=== PATIENT | male | born 1955 | race Caucasian/White ===

== ENCOUNTER 2020-08-13 05:54 | Day surgery (SDC) | payer OTHER ==
--- NOTE | 2020-08-07 15:28 | RAD REPORT ---
EXAM DESCRIPTION: RAD - Chest Pa And Lat (2 Views) - 08/07/2020 3:23 pm CLINICAL HISTORY: preop Chest pain. COMPARISON: Chest Single View dated 08/02/2017; CHEST PA AND LAT 2 VIEW dated 03/25/2015 TECHNIQUE: PA and lateral views of the chest were obtained. FINDINGS: The lungs are hyperexpanded compatible with COPD. The heart is upper limit of normal in si ze. No fracture or aggressive bony process. IMPRESSION: COPD without acute process identified.
[2020-08-07 15:54] LABS: Absolute Lymphocytes (CBC) 2.7 K/uL (0.7-4.9); Basophils % 0.6 % (0-1.3); Hematocrit 44.2 % (39.6-49.0); Lymphocytes % 32.2 % (15.3-44.8); MPV 7.2 fL (7.6-11.3); RBC Red Blood Cell Count 4.56 M/uL (4.33-5.43)
[2020-08-07 15:56] LABS: Protime INR 1.02
[2020-08-07 16:07] LABS: Potassium 4.7 mmol/L (3.5-5.1)
[2020-08-13] MEDS ORDERED: Ringers Lactate 1,000 ML IV ONE (06:25)
[2020-08-13] MEDS ORDERED: BUPIVACAINE 0.25% PF 30 ML VIAL ONE (07:21)
[2020-08-13] MEDS ORDERED: FENTANYL CITR 100 MCG/2 ML ONE (07:29)
[2020-08-13] MEDS ORDERED: propofoL 200 MG/20 ML VIAL IV ONE (07:29)
[2020-08-13] MEDS ORDERED: KETOROLAC 30 MG/ML INJ ONE (07:30)
[2020-08-13] MEDS ORDERED: LIDOCAINE 2% MPF 5 ML VIAL ONE (07:30)
[2020-08-13] MEDS ORDERED: MIDAZOLAM HCL 2 MG/2 ML INJ ONE (07:30)
[2020-08-13] MEDS ORDERED: dexAMETHasone 10 MG/ML VIAL ONE (07:30)
[2020-08-13] MEDS ORDERED: CEFAZOLIN/SWI 1gm 1 GM/10 ML SYR ONE (07:36)
--- NOTE | 2020-08-13 08:27 | P.BOP ---
Preoperative diagnosis: left carpal tunnel syndrome Postoperative diagnosis: same Primary procedure: left carpal tunnel release Director Financial Systems: NONE,NONE Estimated blood loss: 3 cc Specimen: none Findings: see dictation Anesthesia: General Complications: None Implants: none Fluids & blood products: per anesthesia record; TT: 23 mins @ 250 mmHg Transferred to: Recovery Room Condition: Good
[2020-08-13] MEDS ORDERED: ONDANSETRON 4 MG/2 ML VIAL ONE (08:49)
[2020-08-13] MEDS ORDERED: TRAMADOL HCL 50 MG TAB PO ONE (09:10)
[2020-08-13] MEDS ORDERED: TRAMADOL HCL 50 MG TAB ONE (09:22)
[2020-08-13 09:37] VITALS: BP 135/74; TEMP 96.5; O2SAT 97
--- NOTE | 2020-08-14 09:17 | OP ---
Date of Procedure: 08/13/2020 Surgeon: Vikas Lind MD Preoperative Diagnosis: Left carpal tunnel syndrome. Postoperative Diagnosis: Left carpal tunnel syndrome. Procedure Performed: Left carpal tunnel release. Anesthesia: General, LMA. Fluids: Per Anesthesia record. Estimated Blood Loss: 3 cc. Complications: None. Indication For Procedure: Eliud is a 64-year-old male presented to my clinic with signs, symptoms, and EMG findings consistent with carpal tunnel syndrome. Patient failed conservative treatment andrew ures including night splints. I discussed with the patient at length risks and benefits associated w ith operative and nonoperative treatments. He expressed understanding and elected to proceed with op erative treatment. Description Of Procedure: After informed consent was obtained, the patient was identified in the pre operative holding area. The left upper extremity was marked. Patient was then brought back to the o perating room, transferred to the operating table in supine fashion, placed under general LMA anesthe cristine. The left upper extremity was then prepped and draped in usual sterile fashion. A time-out was initiated. The correct patient and procedure were confirmed and identified. Patient did receive his preoperative prophylactic antibiotics. The left upper extremity was exsanguinated and the tournique t was inflated 250 mmHg. Approximately 2 cm longitudinal incision was made just ulnar to the thenar crease. Dissection was then taken down to the palmar fascia. A [place] elevator was then placed deep to the palmar fascia to protect the median nerve at all times. The palmar fascia was released using a 15 blade followed by transverse carpal ligament was encountered. Again, [place] elevator was placed just deep to the transverse carpal ligament and the transverse carpal ligament was completely release d under direct visualization. Any remaining fascial bands were then released using a blunt-tipped Me yaakovenbaum with the tips pointed superficially. The wound was then irrigated thoroughly with normal sa line. The skin was then approximated using a 5-0 Prolene. Sterile dressings were applied. Tourniqu et was let down. Patient was awakened and transferred to PACU in stable condition. Postoperative Plan: The patient will begin working on range of motion exercises. He will follow up in 1 week for wound check and suture removal. CV/MODL Voice ID: [id number] Report ID: [id number]
== END 2020-08-13 09:35 | disposition home health service (06) ==
LOC: OR 05:54
PROVIDERS: ATTEND Orthopaedic Surgery Sports Medicine
PROC: 01N50ZZ Release Median Nerve, Open Approach (ICD-10-PCS; principal; 2020-08-13 11:30)
DX: G56.03 Carpal tunnel syndrome, bilateral upper limbs (principal); Z20.828 Contact with and (suspected) exposure to other viral communicable diseases; G47.33 Obstructive sleep apnea (adult) (pediatric); I10 Essential (primary) hypertension; J44.9 Chronic obstructive pulmonary disease, unspecified
CPT/HCPCS: 93005; 85025; 80048; 36415; 85610; 71046; 64721; U0002; J2704; J2250; J3010; J1100; J0690; J7120; J2405

== ENCOUNTER 2020-11-21 08:22 | Day surgery (SDC) | payer OTHER ==
[2020-11-14 15:51] LABS: Potassium 4.5 mmol/L (3.5-5.1)
[2020-11-14 15:52] LABS: Absolute Lymphocytes (CBC) 2.2 K/uL (0.7-4.9); Basophils % 0.8 % (0-1.3); Hematocrit 41.3 % (39.6-49.0); MPV 7.3 fL (7.6-11.3); RBC Red Blood Cell Count 4.23 M/uL (4.33-5.43)
[2020-11-21] MEDS ORDERED: FENTANYL CITR 100 MCG/2 ML ONE (08:56)
[2020-11-21] MEDS ORDERED: MIDAZOLAM HCL 2 MG/2 ML INJ ONE (08:56)
[2020-11-21] MEDS ORDERED: propofoL 200 MG/20 ML VIAL IV ONE (08:57)
[2020-11-21] MEDS ORDERED: KETOROLAC 30 MG/ML INJ ONE (08:57)
[2020-11-21] MEDS ORDERED: LIDOCAINE 2% MPF 5 ML VIAL ONE (08:57)
[2020-11-21] MEDS ORDERED: BUPIVACAINE 0.25% PF 10 ML VIAL ONE (09:02)
[2020-11-21] MEDS ORDERED: CEFAZOLIN/SWI 1gm 1 GM/10 ML SYR ONE (09:04)
[2020-11-21] MEDS ORDERED: Ringers Lactate 1,000 ML IV ONE (09:04)
[2020-11-21] MEDS ORDERED: BUPIVACAINE 0.25% PF 30 ML VIAL ONE (09:45)
--- NOTE | 2020-11-21 10:59 | P.BOP ---
Preoperative diagnosis: right carpal tunnel syndrome Postoperative diagnosis: same Primary procedure: right open carpal tunnel release Secondary procedure: none Grouter Helper: NONE,NONE Estimated blood loss: 3 cc Specimen: none Findings: see Anesthesia: General Complications: None Implants: none Fluids & blood products: per anesthesia record; TT: 22 mins @ 250 mmHg Transferred to: Recovery Room Condition: Good
[2020-11-21 12:25] VITALS: BP 131/77; TEMP 97
[2020-11-21 12:26] VITALS: O2SAT 98
--- NOTE | 2020-11-22 23:45 | OP ---
Date of Procedure: 11/21/2020 Surgeon: Vikas Lind MD Preoperative Diagnosis: Right carpal tunnel syndrome. Postoperative Diagnosis: Right carpal tunnel syndrome. Procedure Performed: Right open carpal tunnel release. Anesthesia: General LMA. Fluids: Per Anesthesia record. Estimated Blood Loss: 3 cc. Complications: None. Specimens: None. Indication For Procedure: Eliud is a 65-year-old male, who presented to my clinic with signs, symp toms, and EMG findings consistent with right carpal tunnel syndrome. The patient failed conservative treatment measures and have significant pain and symptoms that limited his activities of daily livin g. I discussed with the patient at length risks and benefits associated with operative and nonoperat angelica treatment. He expressed understanding and elected proceed with operative treatment. Description Of Procedure: After informed consent was obtained, the patient was identified in the pre operative holding area. The right upper extremity was marked. The patient was then brought back to the operating room, transferred to the operating table in supine fashion, placed under general LMA an esthesia. The right upper extremity was then prepped and draped in usual sterile fashion. A time-ou t was initiated. Correct patient and procedure were performed, identified. The patient did receive his preoperative prophylactic antibiotics. Approximately a 3 cm longitudinal incision was made just ulnar to the thenar crease. Dissection was then taken down to the palmar fascia, which was identifie d. A [place] elevator was placed deep to the palmar fascia and deep to the transverse carpal ligament to protect the median nerve at all times. A 15 blade was then used to release the palmar fascia and transverse carpal ligament to protect the median nerve at all times with a [place] elevator. Any remai codie fascial bands were then released using a blunt-tipped Metzenbaum with aimed superficially to pro tect the median nerve at all times. Once complete release of the transverse carpal ligament was perf ormed, the wound was then irrigated thoroughly with normal saline. The skin was approximated using a 5-0 Prolene. A 0.25% Marcaine was then placed around the incision for postoperative anesthetic and the patient awakened and transferred to PACU in stable condition. Postoperative Plan: The patient will be nonweightbearing and will follow up in my clinic in 1 week f or suture removal. CV/MODL Voice ID: [id number] Report ID: [id number]
== END 2020-11-21 12:11 | disposition home health service (06) ==
LOC: OR 08:22
PROVIDERS: ATTEND Orthopaedic Surgery Sports Medicine
PROC: 01N50ZZ Release Median Nerve, Open Approach (ICD-10-PCS; principal; 2020-11-21 10:00)
DX: G56.01 Carpal tunnel syndrome, right upper limb (principal); E66.01 Morbid (severe) obesity due to excess calories; Z88.6 Allergy status to analgesic agent; Z20.822 Contact with and (suspected) exposure to COVID-19; I10 Essential (primary) hypertension; E78.00 Pure hypercholesterolemia, unspecified
CPT/HCPCS: 85025; 80048; 36415; 85610; 85730; 64721; U0002; J2704; J2250; J3010; J0690; J7120

== ENCOUNTER 2022-07-05 11:00 | Day surgery (SDC) | payer OTHER ==
[2022-07-01 10:57] LABS: Absolute Lymphocytes (CBC) 1.8 K/uL (0.7-4.9); Hematocrit 43.7 % (39.6-49.0); Lymphocytes % 34.2 % (15.3-44.8); MCV 96.5 fL (80-100); MPV 6.7 fL (7.6-11.3); RBC Red Blood Cell Count 4.53 M/uL (4.33-5.43)
[2022-07-01 11:06] LABS: Protime INR 0.94
[2022-07-05] MEDS ORDERED: HEPA 1000U/500MLS 2,000 UNIT/1,000 ML BAG IV ONE (11:21)
[2022-07-05] MEDS ORDERED: LIDOCAINE 1% 20 ML MDV ONE (11:21)
[2022-07-05] MEDS ORDERED: NA CHLORIDE 0.9% 500 ML ONE (11:26)
[2022-07-05] MEDS ORDERED: HEPARIN 5000 UNIT/ML 1 ML VIAL ONE (11:45)
[2022-07-05] MEDS ORDERED: FENTANYL CITR 100 MCG/2 ML ONE (11:45)
[2022-07-05] MEDS ORDERED: MIDAZOLAM HCL 2 MG/2 ML INJ ONE (11:45)
[2022-07-05] MEDS ORDERED: CLOPIDOGREL 75 MG TABLET ONE (11:46)
[2022-07-05] MEDS ORDERED: HEPARIN 10,000 UNIT/10 ML VIAL IV ONE (11:46)
[2022-07-05] MEDS ORDERED: TICAGRELOR 90 MG TABLET PO ONE (11:46)
[2022-07-05] MEDS ORDERED: VERAPAMIL HCL 10 MG/4 ML VIAL IV ONE (11:46)
[2022-07-05] MEDS ORDERED: ATROPINE SULF 1 MG/10 ML SYR IV ONE (11:46)
[2022-07-05] MEDS ORDERED: ASPIRIN 325 MG TAB ONE (11:46)
--- NOTE | 2022-07-05 12:18 | EKG ---
Test Date: 2022-07-01 Test Time: 09:18:07 Manufacturing Technologist: HEATHER MEASUREMENT RESULTS: Intervals: Rate: 78 MI: 180 QRSD: 94 QT: 390 QTc: 444 [place]: P: 55 MI: 180 QRS: 9 T: 47 INTERPRETIVE STATEMENTS: Sinus rhythm with occasional premature ventricular complexes Otherwise normal ECG Compared to ECG 04/28/2022 11:04:05 Myocardial infarct finding no longer present Electronically Signed On 07-05-22 12:14:14 POLITICAL GEOGRAPHER by Lenin Garcia
[2022-07-05 14:06] VITALS: BP 135/74; O2SAT 98
--- NOTE | 2022-07-06 00:30 | OP ---
Date of Procedure: 07/05/2022 Surgeon: SANKET IRENE Procedures Performed: 1.Selective coronary angiogram. 2.Left heart catheterization. Indication: Abnormal stress test. Access: Right radial artery 6-[place]ian closed with TR band. Complications: None. Estimated Blood Loss: Bleeding less than 20 mL. Anesthesia: Total sedation time was 25 minutes, used fentanyl and Versed. Description Of Procedure: After risks, benefits, and alternatives were explained, the patient agreed to the procedure and signed informed consent. Patient was brought into the cardiac catheterization laboratory and prepped and draped in usual sterile fashion. Then, I accessed the right radial artery using pediatric micropuncture kit and placed 6-[place] Slender sheath and took 5-Malawian [place] [address] into aortic root, engaged left main and right coronary artery, took standard views and then the c atheter was pushed over the wire into the LV, measured the LVEDP and pullback did not record any grad ient. Then I removed the catheter and the sheath, placed TR band with good hemostasis. Findings: 1.Left main: Large and normal. 2.LAD: Large vessel with proximal 20% stenosis, then mid 30% stenosis, then normal. Diagonal 1 bra nch has proximal 30% stenosis. Otherwise, a very large vessel. 3.Left circumflex: It is large and aneurysmal with mid to distal 30% stenosis. OM1 branch appears normal. 4.RCA: Very large and aneurysmal from the ostium all the way to the distal and dominant circulation with 10%-20% diffuse stenosis. 5.LVEDP between 10 and 15 mmHg. Conclusion: 1.Mild nonobstructive coronary artery disease. 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 3.Borderline elevated LVEDP at 15 mmHg. Plan: Medical management, weight loss from diuretics, and cardiac risk factor modifications. SR/MODL Voice ID: [id number] Report ID: [id number]
== END 2022-07-05 14:09 | disposition home or self-care (01) ==
LOC: CCL 11:00
PROVIDERS: ATTEND Internal Medicine
DX: I25.10 Atherosclerotic heart disease of native coronary artery without angina pectoris (principal); I25.41 Coronary artery aneurysm; Z88.5 Allergy status to narcotic agent
CPT/HCPCS: 93005; 85025; 80048; 36415; 85610; 85730; 93458; 76937; C1893; Q9966; J1644 ×2; J2250; J3010; J7040